=== PATIENT | male | born 1990 | race Two or more races ===

== ENCOUNTER 2023-12-17 09:30 | Outpatient (CLI) | payer OTHER ==
--- NOTE | 2023-12-17 14:43 | XRAY Report ---
PROCEDURE: Ankle 3+V LT INDICATIONS: PAIN IN LEFT ANKLE TECHNIQUE: 2 views of the ankle were acquired. COMPARISON: 08/27/2015. FINDINGS: Bones: No fractures or dislocations. Ankle mortise is normally aligned. No suspicious bony lesions . Soft tissues: Small tibiotalar joint effusion. Achilles tendon appears normal. Soft tissue swelling over the lateral ankle. IMPRESSION: No acute bony abnormality. If pain persists with conservative management, consider repeat x-ray in 10 -14 days or cross-sectional imaging. Reviewed by: Abad Howell MD on 12/17/2023 2:42 PM PDT Approved by: Abad Howell MD on 12/17/2023 2:42 PM PDT Station ID: [id number]
== END 2023-12-17 09:45 | disposition home or self-care (01) ==
LOC: DI.N 09:30
PROVIDERS: ATTEND Physician Assistant Medical
DX: M25.572 Pain in left ankle and joints of left foot (principal)

== ENCOUNTER 2023-12-24 09:41 | Outpatient (CLI) | payer OTHER ==
--- NOTE | 2023-12-24 11:09 | Sleep Patient Instructions ---
Sleep Center Visit Summary - Patient Visit Information Reason for Visit: Initial consult for evaluation of sleep disordered breathing and other sleep issues. - Patient Instructions Instructions Attached: Sleep Study Additional Instructions: You will be completing a sleep study, either an in-lab polysomnography (PSG) or home sleep study (HST). You will follow-up in the sleep care office after the sleep study is completed to hear the results and talk about therapy, if needed. You will be called by our office staff to schedule this appointment, but you may contact us with any questions. - Clinic Information Contact: [facility] [address] [place] [address] [email or web address] T: [phone]
--- NOTE | 2023-12-24 11:13 | SLEEP CARE CONSULTATION ---
Information from patient questionnaire entered by Krysta Barger. I have reviewed and concur with the information entered by Krysta Barger. This document represents the service I personally performed and the decisions made by me, Natalie Kerns ARNP. History of Present Illness Service Date and Time: 12/24/2023 0941 Reason for Visit: New patient Chief Complaint: reports: Insomnia, Unrefreshed sleep, Excessive daytime sleepiness, Fatigue, Frequent awakenings at night Date of Onset: 10+YRS Usual bedtime: 6186-5807 Time it takes to fall asleep: 30-60MINS Snores at night: No Observed to quit breathing while asleep: No Sleeps alone due to snoring: No Number of times waking at night: COUPLE Reasons for waking at night: reports: Bathroom, Other (UNKNOWN; sometimes startled awake). denies: Choking, Gasping for air Toss, Turn, or Twitch while sleeping: Yes Recalls having dreams: Yes Usually gets out of bed at: 0600 Feels refreshed in the morning: No Morning headache: Yes (1 time a week and resolves in an hour or so) Sleepy or fatigued during the day: Yes Ever fallen asleep while driving: No Takes day naps: Yes (tries not to nap; couple times a week; feels like he could nap daily) Dreams during day naps: Yes Prior sleep studies: No Additional HPI information: I had the pleasure of seeing SCOTT COTE today regarding the possibility of him having a sleep disorder. His current complaints are excessive daytime sleepiness, fatigue, frequent night awakenings, and unrefreshed sleep. He says he has been having poor sleep his whole life. He has talked to doctors about getting sleep study but never had it done. He has tried to work on sleep hygiene on his own. He says he can not fall asleep for 30 minutes or more. He is waking up several times a night and will wake up before his alarm every morning. He says that he will always get up at 5-6 AM, even on the weekends. He says he can wake up at 1-2 AM and sometimes can not go back to sleep. He will go back to sleep eventually but normally he will lay in bed trying to fall asleep. Sometimes he will get up and go in the other room because he is frustrated. He says he is caffeine dependant. He says he can be " tired" but his body or mind is not ready to go to sleep. He was told that he snored when younger but not in last few years, he sleeps alone. 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 Patient is and lives in . Have you smoked in the past 12 months: No Alcohol use: No Caffeine use: Yes Caffeine amount and frequency: 200MG ALMOST DAILY Family History Family history of sleep disordered breathing: No Allergies and Home Medications Known drug allergies: No Drug allergies reviewed: Yes Home medication list reviewed: Yes (as listed) Allergy and home medication list: Allergies No Known Drug Allergies Allergy (Verified 12/24/23 10:02) Home Medications Medication Instructions Recorded Confirmed Last Taken Type Ibuprofen 800 mg PO TID #20 tablet 08/27/15 12/24/23 Unknown Rx Review of Systems Weight loss over past 5 years: 30 Cardiovascular: denies: high blood pressure Gastrointestinal: denies: heartburn Neurological: denies: headaches Psychiatric: reports: anxiety, depression Ear/Nose/Throat: denies: tonsillectomy Endocrine: reports: sluggishness Musculoskeletal: reports: joint pain, neck pain, back pain Physical Exam Vital signs obtained and entered by: KRYSTA Lau MA Blood Pressure: 118/79 (RIGHT ARM) Cuff size: regular Heart Rate: 60 O2 Saturation: 99 Height: 5 ft 6 in Weight: 152 lb Body Mass Index: 24.5 BMI Classification: Normal Neck circumference: 16.5 Nostrils: patent to airflow Mouth and throat: narrow oropharynx Soft palate: long Hard palate: normal Uvula: normal Uvula visualization: 50% Mallampati Class II Tongue: enlarged in size with teeth wyatt on lateral edges Tonsils: 1+ Neck: normal w/o lymphadenopathy or thyromegaly Heart: regular rate and rhythm Lungs: clear bilaterally Impression and Plan 1. Suspected Obstructive Sleep Apnea-Hypopnea Syndrome, as suggested by a history of irregular snoring, morning headache, frequent awakening during the night, unrefreshed sleep, cognitive impairment, and excessive daytime sleepiness. Narrow oropharynx and obesity are common predisposing factors for obstructive sleep apnea-hypopnea syndrome. I recommend proceeding to polysomnography to confirm the diagnosis and to assess severity. If the patient has significant sleep disordered breathing, a manual CPAP titration study will also be performed to find the optimal treatment pressure. I informed the patient of what the sleep studies involve and after some discussion, obtained agreement to proceed. The pathophysiology of obstructive sleep apnea-hypopnea syndrome was discussed with the patient and health risks of cardiovascular and cerebrovascular disease if not treated. 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 Patient agreed to plan. * Schedule polysomnography +- manual CPAP titration study and return in 1-2 weeks after the study to discuss result and initiate therapy. * Avoid long distance driving or driving when feeling sleepy. * Avoid alcohol, sedative and muscle relaxant around bedtime. * Review instructions provided by trained office staff on how to prepare for the sleep study. * Return for follow-up after sleep study completed. Plan: PSG/HST and follow up Visit Type: In Office Time Spent with Patient (minutes): 32 Provider Statement: I spent 100% of the Face to Face Visit with the patient with greater than 50% spent counseling the patient and coordination of care.
[2023-12-24 11:14] VITALS: BP 118/79; O2SAT 99
== END 2023-12-24 09:42 | disposition home or self-care (01) ==
LOC: SC 09:41
PROVIDERS: ATTEND Nurse Practitioner Family
DX: R06.83 Snoring (principal); R51.9 Headache, unspecified; G47.8 Other sleep disorders; R41.89 Other symptoms and signs involving cognitive functions and awareness; G47.10 Hypersomnia, unspecified
CPT/HCPCS: 99203; 99212